=== PATIENT | female | born 1960 | race Asian ===

== ENCOUNTER 2021-09-11 16:43 | Emergency (ER) | payer OTHER ==
[~2021-09-11] VITALS: Ht 165.1 cm; Wt 48.5 kg
--- NOTE | 2021-09-11 17:13 | NUR ---
BIB SELF C/O BODY PAIN, WEAKNESS, HEADACHE, NAUSEA X5 DAYS AFTER TRIPPING AND FALLING AT WORK. PT DOESN'T RECALL WHETHER SHE HIT HER HEAD BUT HAS HEADACHE LOCATED AT THE TOP OF HEAD. A&OX4. AMBULATORY. 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 BRUISING ON HER UPPER LEFT EXTREMITY. ATTACHED TO BP AND PULSE OX. BP 119/72, POX 98%
[2021-09-11] MEDS ORDERED: ONDANSETRON 4 MG TAB.RAPDIS SL ONE (17:30)
[2021-09-11] MEDS ORDERED: ACETAMINOPHEN ES 500 MG TABLET PO ONE (17:30)
--- NOTE | 2021-09-11 18:00 | NUR ---
PT IS SLEEPING IN BED. V/S STABLE
[2021-09-11] MEDS ORDERED: ONDANSETRON 4 MG TAB.RAPDIS ONE (18:39)
[2021-09-11] MEDS ORDERED: ACETAMINOPHEN ES 500 MG TABLET ONE (18:39)
[2021-09-11 19:14] VITALS: BP 120/69
== END 2021-09-11 19:14 | disposition home or self-care (01) ==
LOC: ER 16:43
DX: S16.1XXA Strain of muscle, fascia and tendon at neck level, initial encounter (principal); S60.222A Contusion of left hand, initial encounter; S50.12XA Contusion of left forearm, initial encounter; S70.02XA Contusion of left hip, initial encounter; R51.9 Headache, unspecified; Z88.6 Allergy status to analgesic agent; Z88.5 Allergy status to narcotic agent; Z60.2 Problems related to living alone; W18.39XA Other fall on same level, initial encounter; Y93.89 Activity, other specified; Y92.89 Other specified places as the place of occurrence of the external cause; Y99.8 Other external cause status
CPT/HCPCS: 70450-TC; 72125-TC; Q0162

== ENCOUNTER 2024-03-04 08:55 | Emergency (ER) | payer OTHER ==
[~2024-03-04] VITALS: Ht 162.6 cm; Wt 45.5 kg
[2024-03-04] MEDS ORDERED: ONDANSETRON HCL/PF 4 MG/2 ML VIAL ONE (09:36)
[2024-03-04] MEDS ORDERED: FAMOTIDINE/PF INJ 20 MG/2 ML VIAL IV ONE (09:37)
[2024-03-04] MEDS: IV NS 0.9% 1,000 ML BAG IV ONE (10:06)
[2024-03-04] MEDS: FAMOTIDINE/PF INJ 20 MG/2 ML VIAL IV ONE (10:07)
[2024-03-04 10:08] LABS: BASOPHILS # (AUTO) 0.1 K/uL (0.0-0.2); BASOPHILS % (AUTO) 3.5 % (0.0-2.0); EOSINOPHILS # (AUTO) 0.1 K/uL (0.0-0.7); EOSINOPHILS % (AUTO) 4.4 % (0.0-6.0); HEMATOCRIT 37 % (33-45); HEMOGLOBIN 12.3 g/dL (11.5-14.8); LYMPHOCYTES # (AUTO) 1.1 K/uL (0.8-4.8); LYMPHOCYTES % (AUTO) 41.8 % (20.0-44.0); MEAN CORPUSCULAR HEMOGLOBIN 31 PG (26.0-33.0); MEAN CORPUSCULAR HGB CONC 33 g/dl (31.0-36.0); MEAN CORPUSCULAR VOLUME 95 fL (82-100); MONOCYTES # (AUTO) 0.3 K/uL (0.1-1.30); MONOCYTES % (AUTO) 11.3 % (2.0-12.0); PLATELET COUNT (AUTO) 194 K/uL (150-450); RED BLOOD CELL COUNT(AUTO) 3.91 MIL/uL (4.0-5.2); RED CELL DISTRIBUTION WIDTH 13.2 % (11.5-15.0); WHITE BLOOD COUNT (AUTO) 2.7 K/uL (4.3-11.0)
[2024-03-04] MEDS: ONDANSETRON HCL/PF 4 MG/2 ML VIAL IVP ONE (10:08)
[2024-03-04 10:12] LABS: APPEARANCE,URINE CLEAR (CLEAR); BILIRUBIN,URINE NEGATIVE (NEGATIVE); BLOOD, URINE NEGATIVE Ery/uL (NEGATIVE); COLOR,URINE YELLOW (YELLOW); KETONES,URINE NEGATIVE (NEGATIVE); LEUKOCYTE ESTERASE ,URINE NEGATIVE (NEGATIVE); NITRITE, URINE NEGATIVE (NEGATIVE); PROTEIN,URINE NEGATIVE (NEGATIVE); UGLUCOSE NEGATIVE (NEGATIVE); UROBILINOGEN,URINE 0.2 EU/dL (0.2)
[2024-03-04 10:17] LABS: CALCIUM, SERUM 8.9 mg/dL (8.5-10.1); CARBON DIOXIDE 28 mmol/L (21-32); CHLORIDE 104 mmol/L (98-107); CREATININE 0.5 mg/dL (0.6-1.3); GLUCOSE 89 mg/dL (74-106); SODIUM SERUM 138 mmol/L (136-145); UREA NITROGEN, BLOOD 8 mg/dL (7-18)
[2024-03-04 10:23] LABS: ALANINE AMINOTRANSFERASE 19 U/L (12-78); ALBUMIN 3.5 g/dL (3.4-5.0); ALKALINE PHOSPHATASE 67 U/L (46-116); ASPARTATE AMINOTRANSFERASE 22 U/L (15-37); BILIRUBIN,DIRECT 0.1 mg/dL (0.0-0.2); BILIRUBIN,TOTAL 0.6 mg/dL (0.2-1.0); LIPASE 50 U/L (16-77); TOTAL PROTEIN, SERUM 6.9 g/dL (6.4-8.2)
[2024-03-04] MEDS ORDERED: OMEP20TA5 PO (11:39)
[2024-03-04] MEDS ORDERED: HYOS0.1273 PO (12:09)
[2024-03-04 12:47] VITALS: BP 105/52; TEMP 98.4; O2SAT 94
== END 2024-03-04 12:48 | disposition home or self-care (01) ==
LOC: ER 09:08
DX: R10.84 Generalized abdominal pain (principal); R11.10 Vomiting, unspecified; M54.30 Sciatica, unspecified side; Z88.8 Allergy status to other drugs, medicaments and biological substances
CPT/HCPCS: 99285; 74176; 96374; 96361; 96375; 93005; 85025; 80048; 87086; 83690; 80076; 81003; 36415; 84484; J3490; J2405; J7030

== ENCOUNTER 2024-08-24 09:57 | Emergency (ER) | payer MEDICAID, OTHER ==
[~2024-08-24] VITALS: Ht 170.2 cm; Wt 48.5 kg
[~2024-08-24 09:57] MED LIST: OMEP20TA5 PO
[2024-08-24 10:04] VITALS: BP 99/66; TEMP 98.6
[2024-08-24 12:28] VITALS: O2SAT 95
== END 2024-08-24 12:28 | disposition home or self-care (01) ==
LOC: ER 10:19
DX: M79.605 Pain in left leg (principal); M79.604 Pain in right leg; Z88.5 Allergy status to narcotic agent; Z88.6 Allergy status to analgesic agent
CPT/HCPCS: 93970-TC